=== PATIENT | female | born 1970 | race Caucasian/White ===

== ENCOUNTER 2019-09-16 08:26 | Day surgery (SDC) | payer MEDICAID ==
[2019-09-10 14:40] LABS: BASOPHILS # (AUTO) 0.1 X10'3 (0-0.2); BASOPHILS % (AUTO) 0.6 % (0-1); EOSINOPHILS # (AUTO) 0.2 X10'3 (0-0.9); EOSINOPHILS % (AUTO) 2.1 % (0-6); LYMPHOCYTES # (AUTO) 3.4 X10'3 (1.1-4.8); LYMPHOCYTES % (AUTO) 38.6 % (21-51); MEAN CORPUSCULAR HEMOGLOBIN 29.7 PG (27.0-31.0); MEAN CORPUSCULAR HGB CONC 33.1 g/dL (33.0-36.5); MEAN CORPUSCULAR VOLUME 89.6 FL (78-98); MEAN PLATELET VOLUME 7.5 FL (7.4-10.4); MONOCYTES # (AUTO) 0.7 X10'3 (0-0.9); MONOCYTES % (AUTO) 7.9 % (2-12); NEUTROPHILS # (AUTO) 4.5 X10'3 (1.8-7.7); NEUTROPHILS % (AUTO) 50.8 % (42-75); PRE OP HEMATOCRIT 42.9 % (35.0-45.0); PRE OP HEMOGLOBIN 14.2 g/dL (12.0-16.0); PRE OP PLATELET COUNT 329 X10'3 (140-440); RED BLOOD COUNT 4.79 X10'6 (4.20-5.60); RED CELL DISTRIBUTION WIDTH 13.7 % (11.5-14.5)
[2019-09-10 15:00] LABS: ALBUMIN 3.8 G/DL (3.4-5.0); ALKALINE PHOSPHATASE 69 IU/L (46-116); BLOOD UREA NITROGEN 13 MG/DL (7-18); BUN/CREATININE RATIO 14.8 (6.6-38.0); CALCIUM 8.7 MG/DL (8.5-10.1); CHLORIDE 107 MMOL/L (99-107); CREATININE 0.88 MG/DL (0.40-0.90); PRE OP ALT 18 U/L (30-65); PRE OP ANION GAP 7 (8-16); PRE OP AST 12 U/L (10-37); PRE OP BILIRUB, TOTAL 0.5 MG/DL (0.0-1.0); PRE OP GLUCOSE 76 MG/DL (70-104); PRE OP POTASSIUM 3.5 MMOL/L (3.4-5.1); PRE OP SODIUM 143 MMOL/L (135-145); TOTAL CARBON DIOXIDE 29.1 MMOL/L (24-32); TOTAL PROTEIN 7.7 G/DL (6.4-8.2); eGFR 69 ML/MIN
[2019-09-10 15:23] LABS: HCG SERUM QL NEGATIVE
[2019-09-16] VITALS (7 sets, daily range): BP systolic 114–146; BP diastolic 65–84
[~2019-09-16] VITALS: Ht 149.9 cm; Wt 43.5 kg
[~2019-09-16 08:26] MED LIST: IBUP-1984 PO; LIDOcaine 0.5% (5mg/ml) 50ml vial ONE; ceFAZolin 2gm in dextrose, iso 50 ML IV ONE; famotidine 20mg tablet PO ONE; ringers solution, lacted 1,000 ML IV SCH
[2019-09-16] MEDS ORDERED: ringers solution, lacted 1,000 ML IV SCH (09:22)
[2019-09-16] MEDS ORDERED: morphine 2 MG/ML inj. syringe IV PRN (09:25)
[2019-09-16] MEDS ORDERED: morphine 4 MG/ML inj SYRINge IV PRN (09:25)
[2019-09-16] MEDS ORDERED: ondansetron/PF 4mg/2ml inj IV PRN (09:25)
[2019-09-16] MEDS ORDERED: hydrALAZINE 20mg/ml inj. IV PRN (09:25)
[2019-09-16] MEDS ORDERED: fentaNYL/PF 50MCG/1 ML 2ML syringe IV PRN ×2 (09:25)
[2019-09-16] MEDS ORDERED: labetalol 20mg/4ml (5mg/ml) syringe IV PRN (09:25)
[2019-09-16] MEDS ORDERED: LIDOcaine 1% (10mg/ml) 2ml vial ONE (09:32)
[2019-09-16] MEDS ORDERED: fentaNYL/PF 50MCG/1 ML 2ML syringe ONE (10:00)
--- NOTE | 2019-09-16 10:53 | NUR ---
Received from OR via BED, accompanied by Anesthesiologist DR BOSS and report given by Anesthesiolgist. PATIENT sleepy and not yet responsive to questions, DENIES PAIN, V/S WNL pt on RA and sats 98%, 20G PIV L hand, SCD ON, DRESSING TO RIGHT WRIST CDI ELEVATED WITH ICEBAG APPLIED.
[2019-09-16] MEDS ORDERED: BUPIVAcaine/PF 2.5 mg/ml (0.25%) 30ml vial ONE (11:00)
--- NOTE | 2019-09-16 12:03 | NUR ---
PATIENT A&OX4, DENIES PAIN, V/S WNL, NEUROVASCULAR CHECKS INTACT, 20G PIV D/C WITH NO COMPLICATIONS OBSERVED, SCD OFF. I HAVE REVIEWED D/C INSTRUCTIONS WITH PATIENT AND FAMILY AND THEY HAVE VERBALIZED UNDERSTANDING. PATIENT D/C HOME WITH ALL BELONGINGS AND FAMILY GAVE TRANSPORT HOME. Pt does not want prescription meds okay with ibuprofen and tylenol, aware did not write script.
[2019-09-16] MEDS ORDERED: BUPIVAcaine/PF 2.5mg/ml (0.25%) 10ml vial IJ ONE (15:00)
== END 2019-09-16 12:03 | disposition home or self-care (01) ==
LOC: PAS 08:26
PROVIDERS: ATTEND Orthopaedic Surgery Hand Surgery
DX: G56.01 Carpal tunnel syndrome, right upper limb (principal); Z11.59 Encounter for screening for other viral diseases; Z79.899 Other long term (current) drug therapy; Z98.890 Other specified postprocedural states; Z87.442 Personal history of urinary calculi; Z88.0 Allergy status to penicillin
CPT/HCPCS: 29848; 36415; 80053; 84703; 85025; J2001; J3010; J3490; U0003; A4215; A6449; J7120

== ENCOUNTER 2019-10-14 06:27 | Day surgery (SDC) | payer MEDICAID ==
[2019-10-07 15:46] LABS: BASOPHILS # (AUTO) 0.1 X10'3 (0-0.2); BASOPHILS % (AUTO) 0.9 % (0-1); EOSINOPHILS # (AUTO) 0.2 X10'3 (0-0.9); LYMPHOCYTES # (AUTO) 3.5 X10'3 (1.1-4.8); LYMPHOCYTES % (AUTO) 37.1 % (21-51); MEAN CORPUSCULAR HEMOGLOBIN 30.2 PG (27.0-31.0); MEAN CORPUSCULAR HGB CONC 33.5 g/dL (33.0-36.5); MEAN CORPUSCULAR VOLUME 90.1 FL (78-98); MONOCYTES # (AUTO) 0.8 X10'3 (0-0.9); MONOCYTES % (AUTO) 8.3 % (2-12); NEUTROPHILS # (AUTO) 4.9 X10'3 (1.8-7.7); NEUTROPHILS % (AUTO) 51.7 % (42-75); PRE OP HEMATOCRIT 42.8 % (35.0-45.0); PRE OP HEMOGLOBIN 14.4 g/dL (12.0-16.0); PRE OP PLATELET COUNT 357 X10'3 (140-440); RED BLOOD COUNT 4.75 X10'6 (4.20-5.60); RED CELL DISTRIBUTION WIDTH 13.9 % (11.5-14.5)
[2019-10-07 16:02] LABS: ALBUMIN 3.7 G/DL (3.4-5.0); ALBUMIN/GLOBULIN RATIO 0.9 (1.1-1.5); ALKALINE PHOSPHATASE 69 IU/L (46-116); BLOOD UREA NITROGEN 11 MG/DL (7-18); BUN/CREATININE RATIO 12.5 (6.6-38.0); CALCIUM 8.6 MG/DL (8.5-10.1); CHLORIDE 104 MMOL/L (99-107); CREATININE 0.88 MG/DL (0.40-0.90); PRE OP ALT 21 U/L (30-65); PRE OP ANION GAP 4 (8-16); PRE OP AST 19 U/L (10-37); PRE OP BILIRUB, TOTAL 0.3 MG/DL (0.0-1.0); PRE OP GLUCOSE 88 MG/DL (70-104); PRE OP SODIUM 138 MMOL/L (135-145); TOTAL CARBON DIOXIDE 29.7 MMOL/L (24-32); TOTAL PROTEIN 7.6 G/DL (6.4-8.2); eGFR 69 ML/MIN
[2019-10-07 16:11] LABS: PRE OP POTASSIUM 3.3 MMOL/L (3.4-5.1)
[2019-10-07 16:12] LABS: HCG SERUM QL NEGATIVE
[2019-10-14] VITALS (10 sets, daily range): BP systolic 94–150; BP diastolic 64–90
[~2019-10-14] VITALS: Ht 149.9 cm; Wt 45.4 kg
[~2019-10-14 06:27] MED LIST changes: -LIDOcaine 0.5% (5mg/ml) 50ml vial ONE; -ceFAZolin 2gm in dextrose, iso 50 ML IV ONE; +clindamycin-Cleocin 900mg/D5W 50 ML IV ONE
[2019-10-14] MEDS ORDERED: BUPIVAcaine/PF 2.5mg/ml (0.25%) 10ml vial ONE (06:48)
[2019-10-14] MEDS ORDERED: ringers solution, lacted 1,000 ML IV SCH (07:06)
[2019-10-14] MEDS ORDERED: LIDOcaine 0.5% (5mg/ml) 50ml vial ONE (07:08)
[2019-10-14] MEDS ORDERED: fentaNYL/PF 50MCG/1 ML 2ML syringe IV PRN ×2 (07:10)
[2019-10-14] MEDS ORDERED: ondansetron/PF 4mg/2ml inj IV PRN (07:10)
[2019-10-14] MEDS ORDERED: hydrALAZINE 20mg/ml inj. IV PRN (07:10)
[2019-10-14] MEDS ORDERED: labetalol 20mg/4ml (5mg/ml) syringe IV PRN (07:10)
[2019-10-14] MEDS ORDERED: morphine 2 MG/ML inj. syringe IV PRN (07:10)
[2019-10-14] MEDS ORDERED: morphine 4 MG/ML inj SYRINge IV PRN (07:10)
[2019-10-14] MEDS ORDERED: fentaNYL/PF 50MCG/1 ML 2ML syringe ONE (09:31)
[2019-10-14] MEDS ORDERED: MIDAZolam 5mg/5ml vial ONE (09:31)
--- NOTE | 2019-10-14 09:55 | NUR ---
Received from OR via , accompanied by Anesthesiologist DR LOVETT and report given by Anesthesiolgist. PT IS UNRESPONSIVE TO VOICE BUT VSS, SKIN WARM AND PINK, NOT MOVING EXT, PIV RIGHT HAND 20G PATENT WITH LR 100ML/HR.
--- NOTE | 2019-10-14 09:55 | NUR ---
LEFT HAND DRESSING WITH MARYJO WRAP CD.
--- NOTE | 2019-10-14 10:34 | NUR ---
PT OPENED EYES TO VERBAL STIMULI AND MOVING EXT X 4.
--- NOTE | 2019-10-14 10:57 | NUR ---
PT WAS WAKING AND HAD MET DISCHARGE CRITERIA. WHEN IT WAS TIME TO CALL HER AND GET HER DRESSED PT C/O NAUSEA BUT NO VOMIT, GAVE PT A COLD WASH CLOTH AND ALCOHOL SWAB TO SMELL. NAUSEA HAS DIMINISHED. WILL KEEP PT LONGER TO REASSESS READINESS FOR DISCHARGE.
--- NOTE | 2019-10-14 11:05 | NUR ---
PT IS SITTING UP, MAIN FLUIDS, LEFT UE ABLE TO WIGGLE FINGERS, SKIN PINK AND HAS FULL SENSATION, MAIN ICE WATER, PT BECOMES NAUSEATED WITH MOVEMENT BUT NO NAUSEA, PT STATES SHE IS READY TO GO HOME. UP TO WHEEL CHAIR WITHOUT NAUSEA. REVIEWED DISCHARGE INSTRUCTIONS WITH PATIENT AND . SENT EMESIS BAG WITH PT IN CASE SHE HAD NAUSEA ENROUTE HOME. DISCHARGED TO VEHICLE VIA W/C.
== END 2019-10-14 11:05 | disposition home or self-care (01) ==
LOC: PAS 06:27
PROVIDERS: ATTEND Orthopaedic Surgery Hand Surgery
DX: G56.02 Carpal tunnel syndrome, left upper limb (principal); Z11.59 Encounter for screening for other viral diseases; Z87.442 Personal history of urinary calculi; Z98.890 Other specified postprocedural states; Z79.899 Other long term (current) drug therapy; Z88.0 Allergy status to penicillin
CPT/HCPCS: 29848; 36415; 80053; 84703; 85025; J2001; J2250; J3010; J3490; U0003; A4215; A7000; J7120